=== PATIENT | male | born 1985 | race African-American/Black ===

== ENCOUNTER 2022-03-28 14:44 | Emergency (ER) | payer MEDICAID ==
[~2022-03-28] VITALS: Ht 172.7 cm; Wt 79.0 kg
[2022-03-28 14:48] VITALS: BP 103/60
[2022-03-28] MEDS ORDERED: KETOROLAC 15MG/ML VIAL IV ONE (15:00)
[2022-03-28 15:21] LABS: CHLORIDE 106 mEq/L (98-107)
[2022-03-28 15:34] LABS: HEMATOCRIT. 35.2 % (42.0-52.0); HEMOGLOBIN. 11.8 g/dL (14.0-18.0); MEAN CORPUSCULAR HEMOGLOBIN 29.9 pg (28.0-32.0); MEAN CORPUSCULAR VOLUME 89.1 fL (80.0-94.0); MEAN PLATELET VOLUME 7.4 fl (7.4-10.4); PLATELET 299 x1000/uL (130-400); RED BLOOD CELL COUNT 3.95 mill/uL (4.7-6.1); RED CELL DISTRIBUTION WIDTH 13.8 % (11.6-14.6)
[2022-03-28 16:55] LABS: PLATELET ESTIMATE NORMAL
== END 2022-03-28 20:55 | disposition left against medical advice (07) ==
LOC: ER 14:44
DX: R10.9 Unspecified abdominal pain (principal)
CPT/HCPCS: 36415; 74176; 80053; 84484; 85025; 99284